=== PATIENT | male | born 1990 | race Caucasian/White ===

== ENCOUNTER 2020-11-30 11:22 | Emergency (ER) | payer SELFPAY ==
[2020-11-30 11:26] VITALS: BP 148/82; PULSE 91; RESP 17; TEMP 36.2; O2SAT 100
--- NOTE | 2020-11-30 13:16 | ED.GENADULT ---
HPI - General Adult General Chief complaint: Wound/Laceration Stated complaint: L hand injury Time Seen by Provider: 11/30/20 12:14 Source: patient History of Present Illness HPI narrative: Patient is a 30 y/o male complaining of laceration to left hand. He states that he was cranking a wench, which jumped out and he tried to grab the wench and was cut on left hand. This happened about 3-4 hours ago. He has minimal pain and bleeding has been controlled. He is not up to date on Tetanus shot. He denies other injuries. Related Data Allergies Allergy/AdvReac Type Severity Reaction Status Date / Time No Known Allergies Allergy Verified 11/30/20 11:33 Review of Systems Review of Systems: All systems reviewed & are unremarkable except as noted in HPI and below PMFSH Social History Social History Gender identity (if verbalized by the patient): Male Exam Const: General: no acute distress and well developed HENMT: Head: normocephalic Ears: external ears normal General nose exam: Normal external nose present Eyes: General: appearance normal, both eyes and all related structures Conjunctivae: conjunctivae normal GI: GI Palp: Yes abdominal tenderness Skin: General skin exam: normal color and turgor normal Trauma: laceration (4 cm laceration on volar surface of left hand) Neuro: General: oriented to person, oriented to place, oriented to time and patient oriented x3 Cognition (Neuro): normal cognition Extrem: General: normal to inspection, full ROM and no pedal edema Psych: Appearance: grossly normal Mental Status: mental status grossly normal Affect: normal affect Course Vital Signs Vital signs: Vital Signs Temperature 36.2 C L 11/30/20 11:26 Pulse Rate 91 11/30/20 11:26 Respiratory Rate 17 11/30/20 11:26 Blood Pressure 148/82 H 11/30/20 11:26 Pulse Oximetry 100 11/30/20 11:26 Temperature 36.2 C L 11/30/20 11:26 Pulse Rate 87 11/30/20 14:35 Respiratory Rate 16 11/30/20 14:35 Blood Pressure 146/84 H 11/30/20 14:35 Pulse Oximetry 100 11/30/20 14:35 Procedures Laceration Laceration 1: Date: 11/30/20 Time: 14:12 Site: upper extremity (left hand volar surface) Side (If applicable): left Size (cm): 4 Description: irregular Depth: simple, single layer Local Anesthetic: lidocaine 1% Amount of anesthesia used (mL): 7 Pre-repair: wound explored ====== Skin Level ====== Skin layer closed with: nylon Size (cm): 5-0 Number of sutures: 5 Technique: simple, interrupted ====== Subcutaneous Layer ====== ====== Muscle Layer ====== ====== Tendon Layer ====== Medical Decision Making Vital Signs Vital Signs: Vital Signs Temperature 36.2 C L 11/30/20 11:26 Pulse Rate 91 11/30/20 11:26 Respiratory Rate 17 11/30/20 11:26 Blood Pressure 148/82 H 11/30/20 11:26 Pulse Oximetry 100 11/30/20 11:26 Temperature 36.2 C L 11/30/20 11:26 Pulse Rate 87 11/30/20 14:35 Respiratory Rate 16 11/30/20 14:35 Blood Pressure 146/84 H 11/30/20 14:35 Pulse Oximetry 100 11/30/20 14:35 Discharge Plan Discharge Clinical Impression: Laceration of hand, left Qualifiers: Encounter type: initial encounter Foreign body presence: without foreign body Qualified Code(s): S61.412A - Laceration without foreign body of left hand, initial encounter Patient Disposition: Home, Self-Care Condition: Stable Instructions: Antibiotic Form, Laceration (ED) Prescriptions: New cephalexin 500 mg capsule 500 mg PO Q6H Qty: 20 RF: 0 Follow-up/Referrals: Harms,Jean Garcia M.D. [Primary Care Provider] - 1 Week (suture removal)
[2020-11-30] MEDS: TETANUS,DIPHTHERIA,AC PERTUSSIS ADULT (0.5 ML) BOOSTRIX IM (14:20)
[2020-11-30 14:35] VITALS: BP 146/84; PULSE 87; RESP 16; O2SAT 100
== END 2020-11-30 14:35 | disposition home or self-care (01) ==
PROVIDERS: Emergency Provider Emergency Medicine; PCP Family Medicine
DX: S61.412A Laceration without foreign body of left hand, initial encounter (principal); Z23 Encounter for immunization; W27.0XXA Contact with workbench tool, initial encounter
CPT/HCPCS: 12002; 90471; 90714; 90715; 99283